=== PATIENT | male | born 1950 | race Caucasian/White ===

== ENCOUNTER 2018-05-08 01:53 | Emergency (ER) | payer MEDICAID | END 2018-05-08 03:05 | disposition home or self-care (01) | LOC: E/R 01:53 | DX: F25.9 Schizoaffective disorder, unspecified (principal); J44.9 Chronic obstructive pulmonary disease, unspecified; Z00.00 Encounter for general adult medical examination without abnormal findings | CPT/HCPCS: 93005; 99285-25 ==